=== PATIENT | male | born 1990 | race African-American/Black ===

== ENCOUNTER 2017-07-19 23:35 | Emergency (ER) | payer OTHER ==
[~2017-07-19] VITALS: Ht 185.4 cm; Wt 84.1 kg
[2017-07-19 23:35] VITALS: BP 134/70
[2017-07-19] MEDS ORDERED: IBUP-1114 PO (23:44)
[2017-07-20] MEDS ORDERED: MORPHINE 4 MG/ML 1ML SYRINGE IV ONE
[2017-07-20] MEDS ORDERED: PERCOCET 5MG/325MG TAB PO ONE (01:00)
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
== END 2017-07-20 01:16 | disposition home or self-care (01) ==
LOC: M ED 23:35
DX: S97.82XA Crushing injury of left foot, initial encounter (principal); V09.00XA Pedestrian injured in nontraffic accident involving unspecified motor vehicles, initial encounter; Y92.410 Unspecified street and highway as the place of occurrence of the external cause; Y93.01 Activity, walking, marching and hiking; Y99.9 Unspecified external cause status

== ENCOUNTER 2017-10-25 23:14 | Emergency (ER) | payer OTHER ==
[~2017-10-25] VITALS: Ht 185.4 cm; Wt 84.1 kg
[2017-10-25 23:14] VITALS: BP 135/74
[~2017-10-25 23:14] MED LIST: IBUP-1114 PO
== END 2017-10-26 00:23 | disposition left against medical advice (07) ==
LOC: M ED 23:14
DX: Z53.29 Procedure and treatment not carried out because of patient's decision for other reasons (principal)

== ENCOUNTER 2017-11-02 15:13 | Emergency (ER) | payer OTHER ==
[~2017-11-02] VITALS: Ht 185.4 cm; Wt 84.1 kg
[2017-11-02 15:13] VITALS: BP 130/85
--- NOTE | 2017-11-02 16:43 | REP ---
Left ankle complete, 11/02/2017: Clinical history: Pain for 3 weeks. Findings: Four views show soft tissue swelling all about the ankle. Appears to be greatest anterolaterally however, distal tibia and fibula without fracture or avulsion. Mortise joint is symmetric and preserved. There is no talar dome osteochondral defect. Subtalar joints intact. No heel spurs. Talus, calcaneus and their articulations with the tarsal bones intact. Visualized tarsal bones unremarkable. Impression. 1. Prominent soft tissue swelling anterolateral to the ankle less medially but without visible or displaced fracture, avulsion, fraction of the mortise joint or talar dome osteochondral defect. 2. No heel spurs and the subtalar joints intact. Signed by Tyler Alvarez MD 11/03/2017 08:15 P
== END 2017-11-02 17:20 | disposition home or self-care (01) ==
LOC: M ED 15:13
DX: S93.402A Sprain of unspecified ligament of left ankle, initial encounter (principal); X50.1XXA Overexertion from prolonged static or awkward postures, initial encounter; Y92.830 Public park as the place of occurrence of the external cause; Y93.67 Activity, basketball; Y99.9 Unspecified external cause status